=== PATIENT | male | born 1980 | race Caucasian/White ===

== ENCOUNTER → 2022-06-02 | Outpatient (CLI) | payer BC ==
[~2022-06-02] VITALS: Ht 167.6 cm; Wt 81.6 kg
== END ==
LOC: EROP 18:40
DX: U07.1 COVID-19 (principal); Z23 Encounter for immunization
CPT/HCPCS: M0222; Q0222

== ENCOUNTER → 2022-06-02 | Outpatient (CLI) | payer BC | LOC: LBRF 17:17 | DX: U07.1 COVID-19 (principal) | CPT/HCPCS: U0002 ==